=== PATIENT | male | born 1965 | race Two or more races ===

== ENCOUNTER 2016-11-01 06:15 | Day surgery (SDC) | payer BC ==
[~2016-11-01 06:15] MED LIST: HYDROCODONE PO; IBUPROFEN400 M1 PO
[2016-11-01 07:04] LABS: BASO % 0.4 % (0-2); EOSINOPHIL ABSOLUTE COUNT 0.2 tho/cmm (0.0-0.7); HCT-HEMATOCRIT 45.8 % (36.0-53.5); HGB-HEMOGLOBIN 16.7 gm/dl (13.5-17.0); LYMPH % 34.3 % (20-45); LYMPH ABSOLUTE COUNT 2.4 tho/cmm (0.8-4.5); MCH (MEAN CORPUSCULAR HGB) 30.6 pg (28.0-32.0); MCHC MEAN CORPUSCULAR HGB CONC 36.5 % (32.0-36.0); MCV (MEAN CELL VOLUME) 83.9 fl (82.0-96.0); MEAN PLATELET VOLUME 10.2 cmc (9.4-12.4); MONO % 5.9 % (0-12); MONOCYTE ABSOLUTE COUNT 0.4 tho/cmm (0.0-1.2); NEUTROPHILS % 56.4 % (40-80); PLATELET COUNT 247 tho/cmm (150-450); RED BLOOD COUNT 5.46 mil/cmm (4.40-5.70); RED CELL DISTRIBUTION WIDTH 12.2 % (12.4-16.4); WHITE BLOOD COUNT 7.1 tho/cmm (4.0-10.0)
[2016-11-01 07:18] LABS: ANION GAP 11 mmol/L (0-20); BLOOD UREA NITROGEN 20 mg/dl (6-24); CALCIUM 9.3 mg/dl (8.5-10.5); CARBON DIOXIDE-VENOUS 28 mmol/L (22-32); CHLORIDE 109 mmol/l (96-110); CREATININE 1.41 mg/dl (0.60-1.30); GLUCOSE 127 mg/dL (70-110); POTASSIUM 3.9 mmol/L (3.7-5.1); SODIUM 144 mmol/L (135-145); eGFR VALUE FOR BLACK 66 mL/Min
[2016-11-01 07:34] LABS: URINE BILIRUBIN NEGATIVE (NEG); URINE BLOOD LARGE (NEG); URINE GLUCOSE (UA) NEGATIVE (NEG); URINE KETONE NEGATIVE (NEG); URINE LEUKOCYTE ESTERASE NEGATIVE (NEG); URINE NITRITE NEGATIVE (NEG); URINE PROTEIN SMALL (NEG)
[2016-11-01 07:36] LABS: URINE APPEARANCE CLEAR; URINE COLOR YELLOW
[2016-11-01 07:48] LABS: URINE MUCUS 1+; URINE RBC 40-50 /[HPF] (0-5)
[2016-11-01 07:49] LABS: URINE EPITHELIAL CELLS 0-2 /[HPF] (0-10); URINE WBC 0-1 /[HPF] (0-5)
== END 2016-11-01 11:25 ==
LOC: SRG 06:15 → SHSB 06:19 → PACU 09:45 → SHSB 10:19
PROVIDERS: Urology
PROC: 0TC78ZZ Extirpation of Matter from Left Ureter, Via Natural or Artificial Opening Endoscopic (ICD-10-PCS; principal; 2016-11-01)
PROC: BT0BYZZ Plain Radiography of Bladder and Urethra using Other Contrast (ICD-10-PCS; 2016-11-01)
DX: N20.1 Calculus of ureter (principal); Z98.890 Other specified postprocedural states; Z79.899 Other long term (current) drug therapy; Z79.891 Long term (current) use of opiate analgesic; Z88.8 Allergy status to other drugs, medicaments and biological substances
CPT/HCPCS: C1726; J1956; Q9967